=== PATIENT | female | born 1955 | race Caucasian/White ===

== ENCOUNTER 2021-09-09 17:31 | Emergency (ER) | payer SELFPAY ==
--- NOTE | ~2021-09-09 | XR_ITS ---
[id number] DATE: 09/09/2021 18:23 INDICATION: Fall today. Left posterior rib pain. TECHNIQUE: PA chest. 3 views of the left ribs. COMPARISON: None FINDINGS: Bilateral hyperinflation. Normal heart size. Aortic arch calcification. No hilar or mediast inal enlargement. No pulmonary infiltrate or consolidation, pleural effusion or pulmonary vascular co ngestion or pneumothorax. No left rib fracture or bone destruction is detected. IMPRESSION: No left rib fracture is detected Reviewed, dictated and finalized at [facility] Reviewed, dictated and finalized at [facility] [employer]
[2021-09-09 17:59] VITALS: BP 166/76; PULSE 77; RESP 18; TEMP 36.1; O2SAT 98
--- NOTE | 2021-09-09 18:02 | ED.FALL ---
HPI - Fall General Chief Complaint: Fall Stated Complaint: fell and landed on back Time Seen by Provider: 09/09/21 18:02 Source: patient History of Present Illness HPI Narrative: 66-year-old female with no significant past medical history presents to the ER after she fell backwards on her left posterior ribs. Her feet got tangled around a dog leash and the dog tugged on the leash and pulled her down around 10:00 a.m. She presents left posterior chest wall pain. No head injury. No neck or back pain. No bruising or laceration. MD complaint: fall Onset (ago): hour(s) ( 8 hours ago) Fall from: standing Place fall occurred: home Loss of consciousness: none Symptoms prior to fall: none Location of injury: chest Quality: sharp Associated symptoms (after fall): chest pain Related Data Home Medications Medication Instructions Recorded Confirmed No Home Medications 09/09/21 09/09/21 Allergies Allergy/AdvReac Type Severity Reaction Status Date / Time azithromycin Allergy Swelling Verified 09/09/21 18:15 of Lip/Tongue/Throat Review of Systems Review of Systems: All systems reviewed & are unremarkable except as noted in HPI and below Constitutional: Constitutional: Reports as per HPI and Reports no additional constitutional complaints Eyes: Eyes: Reports as per HPI and Reports no additional eye complaints ENT: Reports system reviewed and no additional complaints, except as documented Cardiovascular: Cardiovascular: Reports as per HPI and Reports no additional cardiovascular complaints Respiratory: Respiratory: Reports as per HPI and Reports no additional respiratory complaints Comments: left chest wall pain Gastrointestinal: Gastrointestinal: Reports as per HPI and Reports no additional gastrointestinal complaints Genitourinary: Genitourinary: Reports no additional female genitourinary complaints and Reports as per HPI Musculoskeletal: Musculoskeletal: Reports no additional musculoskeletal complaints Integumentary/Breasts: Skin/Breast: Reports system reviewed and no additional complaints, except as docu Neurologic: Reports system reviewed and no additional complaints, except as documented Psychiatric: Psychiatric: Reports no additional psychiatric complaints Endocrine: Endocrine: Reports no additional endocrine complaints Hematologic/Lymphatic: Hematologic/Lymphatic: Reports no additional hematologic/lymphatic complaints Exam Const: General: no acute distress and alert Orientation/consciousness: patient oriented x3 HENMT: Head: normal to inspection Ears: TM abnormal Mouth: Yes lip normal Teeth and gingiva: dentition normal Eyes: Conjunctivae: conjunctivae normal Pupils: Equal, round and reactive pupils present EOM: EOMs intact bilaterally Neck: Neck: normal visual inspection and no lymphadenopathy Chest: Chest palpation & inspection: normal inspection of the chest Other: chest wall tenderness over the left chest posteriorly and anteriorly. No rib crepitus noted. Resp: Auscultation: diminished lung sounds Other: diminished breath sounds on the left side. Cardio: Rate: regular rate Rhythm: regular rhythm GI: GI Palp: Yes Soft to palpation Auscultation: normal bowel sounds : General: Yes no CVA tenderness Back/Spine/Pelvis: Back: no CVA tenderness Skin: General skin exam: normal color Rashes: no rashes Neuro: General: patient oriented x3, moves all extremities, no meningeal signs and no focal motor deficits Extrem: General: normal to inspection Psych: Appearance: grossly normal Mental Status: mental status grossly normal Affect: normal affect and Anxious affect present Attitude: cooperative Thought content: Yes Normal thought content present Course Course Emergency Course: Patient refused to take a shot of Toradol. Patient is not in distress. She is saturating 99% on room air. Vital Signs Vital signs: Vital Signs Temperature 36.1 C L 09/09/21 17:5
[2021-09-09] MEDS: IBUPROFEN 400 MG TABLET PO (19:00)
== END 2021-09-09 19:27 | disposition home or self-care (01) ==
PROVIDERS: Emergency Provider Internal Medicine Critical Care Medicine
DX: R07.89 Other chest pain (principal); W19.XXXA Unspecified fall, initial encounter
CPT/HCPCS: 71101; 99282; 99283; A9270